=== PATIENT | male | born 1965 | race Caucasian/White ===

== ENCOUNTER 2023-10-30 14:33 | Emergency (ER) | payer BC ==
[~2023-10-30] VITALS: Ht 195.6 cm; Wt 144.2 kg
[2023-10-30 14:56] VITALS: BP 133/96; PULSE 81; TEMP 97.2; O2SAT 95
[2023-10-30 15:20] VITALS: RESP 16
== END 2023-10-30 17:18 | disposition home or self-care (01) ==
LOC: ER 14:34 → EDSEX 14:34 → ER 17:18
DX: N43.2 Other hydrocele (principal); N50.89 Other specified disorders of the male genital organs
CPT/HCPCS: 76870; 93976; 99284